=== PATIENT | male | born 1975 | race Caucasian/White ===

== ENCOUNTER 2020-01-27 18:05 | Inpatient (IN) | payer MEDICARE, MEDICAID ==
[~2020-01-27] VITALS: Ht 182.9 cm; Wt 104.3 kg
[2020-01-27] MEDS ORDERED: DIVA-80 PO (20:03)
[2020-01-27] MEDS ORDERED: VENL-68 PO (20:03)
[2020-01-27] MEDS ORDERED: ZIPR80CA9 PO (20:03)
[2020-01-27 20:23] LABS: BASOPHILS % (AUTO) 0.8 % (0.0-2.0); EOSINOPHILS % (AUTO) 0.9 % (1.0-6.0); HEMATOCRIT 41.2 % (41-53); HEMOGLOBIN 13.4 g/dL (13.5-17.5); LYMPHOCYTES # (AUTO) 1.8 K/uL (1.0-4.8); LYMPHOCYTES % (AUTO) 28.4 % (22.0-44.0); MEAN CORPUSCULAR HEMOGLOBIN 30.4 pg (26.0-34.0); MEAN CORPUSCULAR HGB CONC 32.6 G/dL (31.0-37.0); MEAN CORPUSCULAR VOLUME 93 fL (80-100); MONOCYTES # (AUTO) 0.5 K/uL (0.1-1.0); MONOCYTES % (AUTO) 7.9 % (2.0-9.0); NEUTROPHILS # (AUTO) 3.9 K/uL (1.8-7.7); PLATELET COUNT (AUTO) 327 K/uL (150-450); RED BLOOD CELL COUNT(AUTO) 4.41 MIL/uL (4.50-5.90); RED CELL DISTRIBUTION WIDTH 13.6 % (11.5-14.5)
[2020-01-27 20:31] LABS: ANION GAP 7 mmol/L (8-16); CALCIUM, TOTAL 8.5 mg/dL (8.8-10.5); CARBON DIOXIDE 30 mmol/L (22-29); CHLORIDE 104 mmol/L (98-107); CREATININE 0.66 mg/dL (0.60-1.30); GLOMERULAR FILTR. RATE CALC > 60 mL/min (>60); GLUCOSE,RANDOM 100 mg/dL (70-110); POTASSIUM 4.1 mmol/L (3.5-5.1); SODIUM SERUM 141 mmol/L (136-145); UREA NITROGEN, BLOOD 11 mg/dL (7-18)
[2020-01-27 20:36] LABS: ALANINE AMINOTRANSFERASE 19 U/L (12-78); ALBUMIN 3.2 g/dL (3.4-5.0); ALKALINE PHOSPHATASE 60 U/L (46-116); ASPARTATE AMINOTRANSFERASE 18 U/L (15-37); BILIRUBIN,TOTAL 0.2 mg/dL (0.1-1.0)
[2020-01-27 21:23] LABS: AMPHET/METH SCREEN,URINE NEGATIVE (NEGATIVE); BARBITURATE SCREEN, URINE NEGATIVE (NEGATIVE); BENZODIAZEPINES SCREEN,URINE NEGATIVE (NEGATIVE); CANNABINOID SCREEN,URINE NEGATIVE (NEGATIVE); COCAINE SCREEN,URINE NEGATIVE (NEGATIVE); METHADONE SCREEN, URINE NEGATIVE (NEGATIVE); OPIATE SCREEN,URINE NEGATIVE (NEGATIVE)
[2020-01-27 21:25] LABS: PHENCYCLIDINE SCREEN,URINE NEGATIVE (NEGATIVE)
[2020-01-27] MEDS ORDERED: OLANZapine 5 MG RAPDIS TABLET PO PRN (21:30)
[2020-01-27] MEDS ORDERED: ZOLPIDEM TARTRATE 10 MG TABLET PO PRN (21:30)
[2020-01-28 00:14] VITALS: BP 115/68
[2020-01-28 09:24] VITALS: BP 100/60
[2020-01-28] MEDS ORDERED: MAG HYDROX/AL HYDROX/SIMETH ES 30 ML SUSPENSION UDCUP PO PRN (10:00)
[2020-01-28] MEDS ORDERED: ACETAMINOPHEN 325 MG TABLET PO PRN ×2 (10:00→12:30)
[2020-01-28] MEDS ORDERED: PROMETHAZINE HCL 25 MG TABLET PO PRN (10:00)
[2020-01-28] MEDS ORDERED: TUBERCULIN, PURIFIED PROTEIN DERIVATIVE 5 TU/0.1 ML SYRINGE ID ONE (10:00)
[2020-01-28] MEDS ORDERED: GuaiFENesin/D-METHORPHAN [SUGAR-FREE] 200-20MG/10 ML SYRUP UDCUP PO PRN (10:00)
[2020-01-28] MEDS ORDERED: MAGNESIUM HYDROXIDE SUSPENSION 30 ML UDCUP PO PRN (10:00)
[2020-01-28] MEDS ORDERED: HydrOXYzine PAMOATE 50 MG CAPSULE PO PRN (10:00)
[2020-01-28] MEDS ORDERED: LOPERAMIDE HCL 2 MG CAPSULE PO PRN (10:00)
[2020-01-28] MEDS ORDERED: IBUPROFEN 600 MG TABLET PO PRN (12:30)
[2020-01-28] MEDS: THIAMINE 100 MG TABLET PO SCH (16:48)
[2020-01-28] MEDS: ZIPRASIDONE HCL 80 MG CAPSULE PO SCH (16:48)
[2020-01-28] MEDS ORDERED: OLANZapine 5 MG RAPDIS TABLET PO SCH (21:00)
[2020-01-28] MEDS: DIVALPROEX SODIUM 500 MG ER TABLET PO SCH (21:06)
[2020-01-29] MEDS: ZIPRASIDONE HCL 80 MG CAPSULE PO SCH ×2 (07:02→18:35)
[2020-01-29 07:18] LABS: HEMOGLOBIN A1C 5.3 % (3.8-5.6)
[2020-01-29 07:35] LABS: CHOL/HDL RATIO 3.7 (4.2-7.3); FREE T4 (FREE THYROXINE) 1.26 ng/dL (0.76-1.46); THYROID STIMULATING HORMONE 0.77 uIU/mL (0.36-3.74)
[2020-01-29 08:00] VITALS: BP 119/74
[2020-01-29] MEDS ORDERED: FLUoxetine HCL 20 MG CAPSULE PO SCH (09:00)
[2020-01-29] MEDS: THIAMINE 100 MG TABLET PO SCH ×2 (09:10→16:26)
[2020-01-29] MEDS: VENLAFAXINE HCL 150 MG ER CAPSULE PO SCH (09:10)
[2020-01-29] MEDS: FOLIC ACID 1 MG TABLET PO SCH (09:10)
[2020-01-29] MEDS: MULTIVITAMINS WITH MINERALS, THERAPEUTIC TABLET PO SCH (09:10)
[2020-01-29] MEDS: NALTREXONE HCL 50 MG TABLET PO SCH (09:10)
[2020-01-29 11:10] VITALS: BP 119/74
[2020-01-29 16:07] VITALS: BP 102/66
[2020-01-29] MEDS: DIVALPROEX SODIUM 500 MG ER TABLET PO SCH (20:46)
[2020-01-30] MEDS: ZIPRASIDONE HCL 80 MG CAPSULE PO SCH ×2 (06:31→16:41)
[2020-01-30 08:00] VITALS: BP 137/78
[2020-01-30] MEDS: MULTIVITAMINS WITH MINERALS, THERAPEUTIC TABLET PO SCH (08:43)
[2020-01-30] MEDS: THIAMINE 100 MG TABLET PO SCH ×2 (08:44→16:34)
[2020-01-30] MEDS: NALTREXONE HCL 50 MG TABLET PO SCH (08:44)
[2020-01-30] MEDS: FOLIC ACID 1 MG TABLET PO SCH (08:44)
[2020-01-30] MEDS: VENLAFAXINE HCL 150 MG ER CAPSULE PO SCH (08:44)
[2020-01-30 11:55] VITALS: BP 144/81
[2020-01-30] MEDS: LORazepam 2 MG TABLET PO PRN (12:00)
[2020-01-30] MEDS: NICOTINE 14 MG/24 HOUR PATCH TD SCH (15:16)
[2020-01-30 17:00] VITALS: BP 106/71
[2020-01-30] MEDS: DIVALPROEX SODIUM 500 MG ER TABLET PO SCH (20:19)
[2020-01-31] MEDS: ZIPRASIDONE HCL 80 MG CAPSULE PO SCH ×2 (06:50→16:32)
[2020-01-31] MEDS: VENLAFAXINE HCL 150 MG ER CAPSULE PO SCH (08:42)
[2020-01-31] MEDS: MULTIVITAMINS WITH MINERALS, THERAPEUTIC TABLET PO SCH (08:42)
[2020-01-31] MEDS: THIAMINE 100 MG TABLET PO SCH ×2 (08:42→16:32)
[2020-01-31] MEDS: NALTREXONE HCL 50 MG TABLET PO SCH (08:42)
[2020-01-31] MEDS: FOLIC ACID 1 MG TABLET PO SCH (08:42)
[2020-01-31] MEDS: NICOTINE 14 MG/24 HOUR PATCH TD SCH (08:43)
[2020-01-31 08:53] VITALS: BP 149/89
[2020-01-31] MEDS: LORazepam 2 MG TABLET PO PRN (10:04)
[2020-01-31 16:00] VITALS: BP 112/70
[2020-01-31] MEDS: DIVALPROEX SODIUM 500 MG ER TABLET PO SCH (20:04)
[2020-02-01] MEDS: ZIPRASIDONE HCL 80 MG CAPSULE PO SCH ×2 (06:34→16:34)
[2020-02-01] MEDS: MULTIVITAMINS WITH MINERALS, THERAPEUTIC TABLET PO SCH (08:45)
[2020-02-01] MEDS: VENLAFAXINE HCL 150 MG ER CAPSULE PO SCH (08:45)
[2020-02-01] MEDS: NICOTINE 14 MG/24 HOUR PATCH TD SCH (08:45)
[2020-02-01] MEDS: FOLIC ACID 1 MG TABLET PO SCH (08:45)
[2020-02-01] MEDS: THIAMINE 100 MG TABLET PO SCH ×2 (08:45→16:34)
[2020-02-01] MEDS: NALTREXONE HCL 50 MG TABLET PO SCH (08:46)
[2020-02-01 09:15] VITALS: BP 122/91
[2020-02-01] MEDS ORDERED: NITROGLYCERIN 0.4 MG SUBLINGUAL TABLET #25 SL PRN (09:30)
[2020-02-01 10:06] VITALS: BP 115/71
[2020-02-01 10:20] VITALS: BP 109/74
[2020-02-01 12:00] VITALS: BP 147/89
[2020-02-01] MEDS: METOPROLOL TARTRATE 25 MG TABLET PO SCH ×2 (12:50→20:03)
[2020-02-01] MEDS: LORazepam 2 MG TABLET PO PRN ×2 (12:52→16:52)
[2020-02-01 13:14] VITALS: BP 122/84
[2020-02-01 16:03] VITALS: BP 114/67
[2020-02-01] MEDS: DIVALPROEX SODIUM 500 MG ER TABLET PO SCH (20:03)
[2020-02-02] MEDS: ZIPRASIDONE HCL 80 MG CAPSULE PO SCH ×2 (06:47→17:19)
[2020-02-02] MEDS: LORazepam 2 MG TABLET PO PRN ×2 (08:20→14:31)
[2020-02-02] MEDS: MULTIVITAMINS WITH MINERALS, THERAPEUTIC TABLET PO SCH (08:21)
[2020-02-02] MEDS: FOLIC ACID 1 MG TABLET PO SCH (08:21)
[2020-02-02] MEDS: THIAMINE 100 MG TABLET PO SCH ×2 (08:21→17:19)
[2020-02-02] MEDS: VENLAFAXINE HCL 150 MG ER CAPSULE PO SCH (08:23)
[2020-02-02] MEDS: NICOTINE 14 MG/24 HOUR PATCH TD SCH (08:23)
[2020-02-02] MEDS: NALTREXONE HCL 50 MG TABLET PO SCH (08:24)
[2020-02-02] MEDS: METOPROLOL TARTRATE 25 MG TABLET PO SCH ×2 (08:25→20:33)
[2020-02-02 12:00] VITALS: BP 101/67
[2020-02-02 16:00] VITALS: BP 106/71
[2020-02-02] MEDS: DIVALPROEX SODIUM 500 MG ER TABLET PO SCH (20:33)
[2020-02-03] MEDS: ZIPRASIDONE HCL 80 MG CAPSULE PO SCH ×2 (06:19→17:08)
[2020-02-03] MEDS: MULTIVITAMINS WITH MINERALS, THERAPEUTIC TABLET PO SCH (08:08)
[2020-02-03] MEDS: THIAMINE 100 MG TABLET PO SCH ×2 (08:09→17:08)
[2020-02-03] MEDS: METOPROLOL TARTRATE 25 MG TABLET PO SCH ×2 (08:09→20:39)
[2020-02-03] MEDS: VENLAFAXINE HCL 150 MG ER CAPSULE PO SCH (08:09)
[2020-02-03] MEDS: NICOTINE 14 MG/24 HOUR PATCH TD SCH (08:09)
[2020-02-03] MEDS: NALTREXONE HCL 50 MG TABLET PO SCH (08:10)
[2020-02-03] MEDS: FOLIC ACID 1 MG TABLET PO SCH (08:10)
[2020-02-03 09:55] VITALS: BP 107/62
[2020-02-03] MEDS: LORazepam 2 MG TABLET PO PRN ×2 (10:47→15:13)
[2020-02-03 16:00] VITALS: BP 100/65
[2020-02-03] MEDS: DIVALPROEX SODIUM 500 MG ER TABLET PO SCH (20:38)
[2020-02-03] MEDS ORDERED: OLANZapine 5 MG RAPDIS TABLET PO SCH (21:00)
[2020-02-04] MEDS: ZIPRASIDONE HCL 80 MG CAPSULE PO SCH ×2 (06:27→17:36)
[2020-02-04 08:00] VITALS: BP 114/69
[2020-02-04] MEDS: VENLAFAXINE HCL 150 MG ER CAPSULE PO SCH (08:02)
[2020-02-04] MEDS: FOLIC ACID 1 MG TABLET PO SCH (08:02)
[2020-02-04] MEDS: NALTREXONE HCL 50 MG TABLET PO SCH (08:02)
[2020-02-04] MEDS: METOPROLOL TARTRATE 25 MG TABLET PO SCH ×2 (08:02→21:00)
[2020-02-04] MEDS: MULTIVITAMINS WITH MINERALS, THERAPEUTIC TABLET PO SCH (08:02)
[2020-02-04] MEDS: NICOTINE 14 MG/24 HOUR PATCH TD SCH (08:08)
[2020-02-04] MEDS: THIAMINE 100 MG TABLET PO SCH ×2 (08:08→17:36)
[2020-02-04] MEDS: LORazepam 2 MG TABLET PO PRN ×2 (10:55→15:43)
[2020-02-04] MEDS ORDERED: QUEtiapine FUMARATE 100 MG TABLET PO PRN (12:30)
[2020-02-04 19:11] VITALS: BP 142/89
[2020-02-04] MEDS ORDERED: QUEtiapine FUMARATE 100 MG TABLET PO SCH (21:00)
[2020-02-04] MEDS: DIVALPROEX SODIUM 500 MG ER TABLET PO SCH (21:00)
[2020-02-05 04:56] VITALS: BP 125/73
[2020-02-05] MEDS: ZIPRASIDONE HCL 80 MG CAPSULE PO SCH (07:05)
[2020-02-05 08:00] VITALS: BP 102/73
[2020-02-05 08:47] VITALS: BP 110/68
[2020-02-05] MEDS: LORazepam 2 MG TABLET PO PRN (08:48)
[2020-02-05] MEDS: FOLIC ACID 1 MG TABLET PO SCH (08:49)
[2020-02-05] MEDS: NALTREXONE HCL 50 MG TABLET PO SCH (08:49)
[2020-02-05] MEDS: VENLAFAXINE HCL 150 MG ER CAPSULE PO SCH (08:49)
[2020-02-05] MEDS: METOPROLOL TARTRATE 25 MG TABLET PO SCH (08:50)
[2020-02-05] MEDS: MULTIVITAMINS WITH MINERALS, THERAPEUTIC TABLET PO SCH (08:50)
[2020-02-05] MEDS: THIAMINE 100 MG TABLET PO SCH (08:51)
[2020-02-05] MEDS: NICOTINE 14 MG/24 HOUR PATCH TD SCH (08:51)
[2020-02-05] MEDS ORDERED: METO25 PO (14:25)
[2020-02-05] MEDS ORDERED: QUET100T PO (14:26)
[2020-02-05] MEDS ORDERED: NALT50TA6 PO (14:26)
== END 2020-02-05 15:00 | disposition home or self-care (01) | DRG 885 ==
LOC: EMS 18:05 → 3EX 21:26
PROVIDERS: ADMIT Psychiatry & Neurology Psychiatry; ATTEND Psychiatry & Neurology Psychiatry
DX: F25.1 Schizoaffective disorder, depressive type (principal); R45.851 Suicidal ideations; G89.29 Other chronic pain; F14.10 Cocaine abuse, uncomplicated; F17.210 Nicotine dependence, cigarettes, uncomplicated; F12.10 Cannabis abuse, uncomplicated; D64.9 Anemia, unspecified; Z98.1 Arthrodesis status; Z59.0 Homelessness; Z91.14 Patient's other noncompliance with medication regimen
CPT/HCPCS: 83036; 84439; 84443; 86592; 93005; G0378; G0480; 36415-L1; 36415-TC; 71046; 71046-TC; 80061-TC

== ENCOUNTER → 2021-08-05 | Outpatient (CLI) | payer MEDICARE, MEDICAID ==
[~2021-08-05] MED LIST: DIVA-80 PO; METO25 PO; NALT50TA6 PO; VENL-68 PO; ZIPR80CA9 PO
== END | disposition home or self-care (01) ==
LOC: LABMN 13:28
PROVIDERS: ATTEND Psychiatry & Neurology Psychiatry
DX: F25.0 Schizoaffective disorder, bipolar type (principal)
CPT/HCPCS: 80164

== ENCOUNTER → 2021-09-03 | Outpatient (CLI) | payer MEDICARE, MEDICAID ==
[2021-09-03 18:53] LABS: HEMOGLOBIN A1C 5.4 % (3.8-5.6)
[2021-09-03 18:58] LABS: CHOL/HDL RATIO 4.2 (4.2-7.3)
== END | disposition home or self-care (01) ==
LOC: LABPV 14:02
PROVIDERS: ATTEND Psychiatry & Neurology Psychiatry
DX: F25.0 Schizoaffective disorder, bipolar type (principal); Z79.899 Other long term (current) drug therapy
CPT/HCPCS: 80061; 82947; 83036

== ENCOUNTER → 2021-09-24 | Outpatient (CLI) | payer MEDICARE, MEDICAID | END | disposition home or self-care (01) | LOC: LABMN 13:12 | PROVIDERS: ATTEND Psychiatry & Neurology Psychiatry | DX: F25.0 Schizoaffective disorder, bipolar type (principal) | CPT/HCPCS: 80164 ==

== ENCOUNTER 2022-11-22 15:39 | Inpatient (IN) | payer MEDICARE, MEDICAID ==
[~2022-11-22] VITALS: Ht 182.9 cm; Wt 105.7 kg
[~2022-11-22 15:39] MED LIST changes: -DIVA-80 PO; +DIVA500T53 PO
[2022-11-22] MEDS ORDERED: OLANZapine 5 MG RAPDIS TABLET PO PRN (16:45)
[2022-11-22] MEDS ORDERED: ZOLPIDEM TARTRATE 10 MG TABLET PO PRN (16:45)
[2022-11-22] MEDS ORDERED: BISMUTH SUBSALICYLATE 262 MG CHEWABLE TABLET CHEW PRN (19:00)
[2022-11-22] MEDS: LORazepam 2 MG TABLET PO PRN (22:15)
[2022-11-23] MEDS: METOPROLOL TARTRATE 25 MG TABLET PO SCH (08:10)
[2022-11-23] MEDS: NICOTINE 21 MG/24 HOUR PATCH TD SCH (08:10)
[2022-11-23] MEDS: LORazepam 2 MG TABLET PO PRN ×2 (08:16→13:03)
[2022-11-23 08:56] VITALS: BP 117/84
[2022-11-23] MEDS: OMEGA-3/DHA/EPA/FISH OIL 1,000 MG CAPSULE PO SCH (09:00)
[2022-11-23] MEDS: NALTREXONE HCL 50 MG TABLET PO SCH (09:00)
[2022-11-23] MEDS ORDERED: ACETAMINOPHEN 325 MG TABLET PO PRN (11:30)
[2022-11-23] MEDS ORDERED: LOPERAMIDE HCL 2 MG CAPSULE PO PRN ×2 (11:30)
[2022-11-23] MEDS ORDERED: MAG HYDROX/AL HYDROX/SIMETH ES 30 ML SUSPENSION UDCUP PO PRN (11:30)
[2022-11-23] MEDS ORDERED: HydrOXYzine PAMOATE 50 MG CAPSULE PO PRN ×2 (11:30)
[2022-11-23] MEDS ORDERED: GuaiFENesin/D-METHORPHAN [SUGAR-FREE] 200-20MG/10 ML SYRUP UDCUP PO PRN ×2 (11:30)
[2022-11-23] MEDS ORDERED: CYANOCOBALAMIN 1,000 MCG/ML VIAL IM ONE (11:30)
[2022-11-23] MEDS ORDERED: MAGNESIUM HYDROXIDE SUSPENSION 30 ML UDCUP PO PRN (11:30)
[2022-11-23] MEDS ORDERED: PROMETHAZINE HCL 25 MG TABLET PO PRN ×3 (11:30→11:45)
[2022-11-23 16:18] VITALS: BP 115/82
[2022-11-23] MEDS: THIAMINE 100 MG TABLET PO SCH (16:37)
[2022-11-23] MEDS ORDERED: THIAMINE 100 MG TABLET PO SCH (17:00)
[2022-11-23] MEDS: MELATONIN 5 MG TABLET PO SCH (20:46)
[2022-11-23] MEDS: MIRTAZAPINE 15 MG TABLET PO SCH (20:46)
[2022-11-23] MEDS: DiphenhydrAMINE HCL 25 MG CAPSULE PO SCH (20:47)
[2022-11-23] MEDS: OLANZapine 10 MG RAPDIS TABLET PO SCH (20:47)
[2022-11-24] MEDS: MULTIVITAMINS WITH MINERALS, THERAPEUTIC TABLET PO SCH (08:12)
[2022-11-24] MEDS: THIAMINE 100 MG TABLET PO SCH ×2 (08:12→16:28)
[2022-11-24] MEDS: FOLIC ACID 1 MG TABLET PO SCH (08:12)
[2022-11-24] MEDS: NALTREXONE HCL 50 MG TABLET PO SCH (08:12)
[2022-11-24] MEDS: METOPROLOL TARTRATE 25 MG TABLET PO SCH ×2 (08:13→09:50)
[2022-11-24] MEDS: NICOTINE 21 MG/24 HOUR PATCH TD SCH (08:16)
[2022-11-24] MEDS: OMEGA-3/DHA/EPA/FISH OIL 1,000 MG CAPSULE PO SCH (08:17)
[2022-11-24 08:30] VITALS: BP 120/74
[2022-11-24] MEDS ORDERED: MULTIVITAMINS WITH MINERALS, THERAPEUTIC TABLET PO SCH (09:00)
[2022-11-24] MEDS ORDERED: FOLIC ACID 1 MG TABLET PO SCH (09:00)
[2022-11-24] MEDS: LORazepam 2 MG TABLET PO PRN ×2 (09:49→13:55)
[2022-11-24] MEDS: MELATONIN 5 MG TABLET PO SCH (21:00)
[2022-11-24] MEDS: MIRTAZAPINE 15 MG TABLET PO SCH (21:00)
[2022-11-24] MEDS: OLANZapine 10 MG RAPDIS TABLET PO SCH (21:00)
[2022-11-24] MEDS: DiphenhydrAMINE HCL 25 MG CAPSULE PO SCH (21:13)
[2022-11-24] MEDS ORDERED: NALT50TA PO (21:30)
[2022-11-24] MEDS ORDERED: MIRT-89 PO (21:30)
[2022-11-24] MEDS ORDERED: DIPH25CA85 PO (21:30)
[2022-11-24] MEDS ORDERED: OMEG-135 PO (21:30)
[2022-11-24] MEDS ORDERED: OLAN10TA26 PO (21:30)
[2022-11-24] MEDS ORDERED: MELA5TAB40 PO (21:30)
[2022-11-25 06:48] LABS: COVID AG,FIA SOURCE NASAL SWAB
[2022-11-25] MEDS: NICOTINE 21 MG/24 HOUR PATCH TD SCH (08:10)
[2022-11-25] MEDS: MULTIVITAMINS WITH MINERALS, THERAPEUTIC TABLET PO SCH (08:11)
[2022-11-25] MEDS: NALTREXONE HCL 50 MG TABLET PO SCH (08:11)
[2022-11-25] MEDS: OMEGA-3/DHA/EPA/FISH OIL 1,000 MG CAPSULE PO SCH (08:11)
[2022-11-25] MEDS: METOPROLOL TARTRATE 25 MG TABLET PO SCH (08:11)
[2022-11-25] MEDS: THIAMINE 100 MG TABLET PO SCH (08:11)
[2022-11-25] MEDS: FOLIC ACID 1 MG TABLET PO SCH (08:11)
[2022-11-25 08:18] VITALS: BP 120/78
[2022-11-25] MEDS: LORazepam 2 MG TABLET PO PRN ×2 (08:18→13:14)
[2022-11-25 08:27] VITALS: BP 120/78
== END 2022-11-25 15:15 | disposition home or self-care (01) | DRG 885 ==
LOC: 3EC 16:00
PROVIDERS: ADMIT Psychiatry & Neurology Psychiatry; ATTEND Psychiatry & Neurology Psychiatry
PROC: GZHZZZZ Group Psychotherapy (ICD-10-PCS; principal; 2022-11-22)
PROC: GZ51ZZZ Individual Psychotherapy, Behavioral (ICD-10-PCS; 2022-11-22)
DX: F25.9 Schizoaffective disorder, unspecified (principal); J44.9 Chronic obstructive pulmonary disease, unspecified; E66.9 Obesity, unspecified; G89.29 Other chronic pain; I10 Essential (primary) hypertension; D64.9 Anemia, unspecified; E87.6 Hypokalemia; F17.200 Nicotine dependence, unspecified, uncomplicated; Z55.9 Problems related to education and literacy, unspecified; M54.9 Dorsalgia, unspecified; Z59.9 Problem related to housing and economic circumstances, unspecified; Z63.9 Problem related to primary support group, unspecified; Z98.1 Arthrodesis status; Z68.31 Body mass index [BMI] 31.0-31.9, adult
CPT/HCPCS: J3420; Q9967

== ENCOUNTER 2023-10-09 01:56 | Inpatient (IN) | payer MEDICARE, MEDICAID ==
[~2023-10-09] VITALS: Ht 182.9 cm; Wt 104.4 kg
[~2023-10-09 01:56] MED LIST changes: +DIPH25CA85 PO; -DIVA500T53 PO; +MELA5TAB40 PO; -METO25 PO; +MIRT-89 PO; +NALT50TA PO; -NALT50TA6 PO; +OLAN10TA26 PO; +OLAN5TAB94 PO; +OMEG-135 PO; -VENL-68 PO; -ZIPR80CA9 PO
[2023-10-09] MEDS: DiphenhydrAMINE HCL 50 MG/ML VIAL IM ONE (03:43)
[2023-10-09] MEDS: LORazepam 2 MG/ML VIAL IM ONE (03:44)
[2023-10-09] MEDS: HALOPERIDOL LACTATE 5 MG/ML VIAL IM ONE (03:44)
[2023-10-09 04:07] LABS: COVID AG,FIA SOURCE NASAL SWAB
[2023-10-09 04:15] LABS: SARS-COV2 (COVID) ANTIGEN,FIA Negative (Negative)
[2023-10-09 04:32] LABS: BASOPHILS % (AUTO) 0.6 % (0.0-2.0); EOSINOPHILS % (AUTO) 0.6 % (1.0-6.0); HEMATOCRIT 40.9 % (41-53); LYMPHOCYTES # (AUTO) 1.1 K/uL (1.0-4.8); LYMPHOCYTES % (AUTO) 18.6 % (22.0-44.0); MEAN CORPUSCULAR HEMOGLOBIN 31.1 pg (26.0-34.0); MEAN CORPUSCULAR HGB CONC 34.3 G/dL (31.0-37.0); MEAN CORPUSCULAR VOLUME 91 fL (80-100); MONOCYTES # (AUTO) 0.5 K/uL (0.1-1.0); MONOCYTES % (AUTO) 8.3 % (2.0-9.0); NEUTROPHILS # (AUTO) 4.3 K/uL (1.8-7.7); NEUTROPHILS % (AUTO) 71.9 % (40.0-70.0); PLATELET COUNT (AUTO) 254 K/uL (150-450); RED BLOOD CELL COUNT(AUTO) 4.51 MIL/uL (4.50-5.90); RED CELL DISTRIBUTION WIDTH 12.9 % (11.5-14.5); WHITE BLOOD COUNT (AUTO) 5.9 K/uL (4.5-11.0)
[2023-10-09 04:42] LABS: ANION GAP 7 mmol/L (8-16); CALCIUM, TOTAL 8.7 mg/dL (8.8-10.5); CARBON DIOXIDE 30 mmol/L (22-29); CHLORIDE 103 mmol/L (98-107); CREATININE 0.86 mg/dL (0.60-1.30); GLOMERULAR FILTR. RATE CALC > 60 mL/min (>60); GLUCOSE,RANDOM 106 mg/dL (70-110); POTASSIUM 3.7 mmol/L (3.5-5.1); SODIUM SERUM 140 mmol/L (136-145); UREA NITROGEN, BLOOD 9 mg/dL (7-18)
[2023-10-09 04:48] LABS: ALANINE AMINOTRANSFERASE 21 U/L (12-78); ALBUMIN 3.6 g/dL (3.4-5.0); ALKALINE PHOSPHATASE 69 U/L (46-116); ASPARTATE AMINOTRANSFERASE 17 U/L (15-37); BILIRUBIN,TOTAL 0.4 mg/dL (0.1-1.0); TOTAL PROTEIN, SERUM 7.1 g/dL (6.4-8.2)
[2023-10-09 05:07] LABS: ALCOHOL, BLOOD (SERUM) < 3 mg/dL (0-10)
[2023-10-09] MEDS ORDERED: OLANZapine 5 MG RAPDIS TABLET PO PRN (06:00)
[2023-10-09] MEDS ORDERED: ZOLPIDEM TARTRATE 10 MG TABLET PO PRN (06:00)
[2023-10-09] MEDS ORDERED: MAGNESIUM HYDROXIDE SUSPENSION 30 ML UDCUP PO PRN (11:15)
[2023-10-09] MEDS ORDERED: MAG HYDROX/ALUMINUM HYD/SIMETH ES 30 ML SUSPENSION UDCUP PO PRN (11:15)
[2023-10-09] MEDS ORDERED: HydrOXYzine PAMOATE 50 MG CAPSULE PO PRN (11:15)
[2023-10-09] MEDS ORDERED: LOPERAMIDE HCL 2 MG CAPSULE PO PRN (11:15)
[2023-10-09] MEDS ORDERED: GuaiFENesin/D-METHORPHAN [SUGAR-FREE] 200-20MG/10 ML SYRUP UDCUP PO PRN (11:15)
[2023-10-09] MEDS: GABAPENTIN 300 MG CAPSULE PO SCH (17:00)
[2023-10-09] MEDS: THIAMINE 100 MG TABLET PO SCH (17:00)
[2023-10-09 20:56] VITALS: BP 122/85; PULSE 124; TEMP 97.5; O2SAT 97
[2023-10-09] MEDS: OLANZapine 5 MG RAPDIS TABLET PO SCH (21:00)
[2023-10-09] MEDS: MELATONIN 5 MG TABLET PO SCH (21:39)
[2023-10-10 08:00] VITALS: BP 120/78; PULSE 107; RESP 17; TEMP 98.4; O2SAT 99
[2023-10-10 08:40] LABS: CHOL/HDL RATIO 3.7 (4.2-7.3); FREE T4 (FREE THYROXINE) 1.35 ng/dL (0.76-1.46); THYROID STIMULATING HORMONE 0.71 uIU/mL (0.36-3.74)
[2023-10-10 08:44] LABS: HEMOGLOBIN A1C 5.3 % (3.8-5.6)
[2023-10-10] MEDS: DULoxetine HCL 20 MG CAPSULE PO SCH (08:46)
[2023-10-10] MEDS: OMEGA-3/DHA/EPA/FISH OIL 1,000 MG CAPSULE PO SCH (08:46)
[2023-10-10] MEDS: MULTIVITAMINS WITH MINERALS, THERAPEUTIC TABLET PO SCH (08:47)
[2023-10-10] MEDS: FOLIC ACID 1 MG TABLET PO SCH (08:47)
[2023-10-10] MEDS: NALTREXONE HCL 50 MG TABLET PO SCH (08:47)
[2023-10-10] MEDS: PALIPERIDONE PALMITATE 234 MG/1.5 ML SYRINGE IM ONE (09:00)
[2023-10-10 20:04] VITALS: BP 114/77; PULSE 82; RESP 18; TEMP 98; O2SAT 99
[2023-10-11 11:24] VITALS: BP 111/76; PULSE 100; RESP 18; TEMP 98.1; O2SAT 97
[2023-10-11 20:45] VITALS: BP 126/87; RESP 18
[2023-10-11] MEDS: ACETAMINOPHEN 325 MG TABLET PO PRN (20:45)
[2023-10-11] MEDS: PROMETHAZINE HCL 25 MG TABLET PO PRN (20:45)
[2023-10-12 08:12] VITALS: BP 125/74; PULSE 82; RESP 19; TEMP 98.2; O2SAT 97
[2023-10-12] MEDS ORDERED: RisperiDONE 1 MG TABLET PO PRN (16:30)
[2023-10-12 20:17] VITALS: BP 118/75; PULSE 86; TEMP 97.8; O2SAT 96
[2023-10-12] MEDS: RisperiDONE 3 MG TABLET PO SCH (20:22)
[2023-10-13 09:04] VITALS: BP 124/81; PULSE 96; RESP 18; TEMP 97.6; O2SAT 97
[2023-10-13 20:42] VITALS: RESP 19
[2023-10-13] MEDS: RisperiDONE 4 MG TABLET PO SCH (20:45)
[2023-10-13 20:47] VITALS: RESP 17
[2023-10-13 21:47] VITALS: RESP 16
[2023-10-14] MEDS ORDERED: PALIPERIDONE PALMITATE 156 MG/ML SYRINGE IM ONE (09:00)
[2023-10-14 09:30] VITALS: BP 115/76; PULSE 100; RESP 17; TEMP 97.6; O2SAT 97
[2023-10-14] MEDS: DULoxetine HCL 30 MG CAPSULE PO SCH (09:40)
[2023-10-14] MEDS: LORazepam 2 MG TABLET PO PRN (11:35)
[2023-10-14 20:42] VITALS: RESP 18
[2023-10-15 11:45] VITALS: BP 118/72; PULSE 88; RESP 18; TEMP 97.8; O2SAT 96
[2023-10-15 20:36] VITALS: BP 126/80; PULSE 90; RESP 17; TEMP 98.2; O2SAT 96
[2023-10-16 09:16] VITALS: BP 139/98; PULSE 98; RESP 18; TEMP 97.6; O2SAT 97
[2023-10-16 20:05] VITALS: RESP 19
[2023-10-17] MEDS: DULoxetine HCL 20 MG CAPSULE PO SCH (08:29)
[2023-10-17] MEDS: GABAPENTIN 400 MG CAPSULE PO SCH (08:30)
[2023-10-17] MEDS: NICOTINE POLACRILEX 2 MG LOZENGE PO PRN (12:34)
[2023-10-17] MEDS: PALIPERIDONE PALMITATE 234 MG/1.5 ML SYRINGE IM ONE ×2 (15:02→16:49)
[2023-10-17 15:58] VITALS: BP 109/76; PULSE 102; RESP 18; TEMP 97.6; O2SAT 97
[2023-10-17 20:31] VITALS: BP 111/64; PULSE 81; RESP 14; TEMP 97.6; O2SAT 97
[2023-10-17] MEDS: RisperiDONE 2 MG TABLET PO SCH (20:54)
[2023-10-18 11:00] VITALS: BP 103/63; PULSE 83; RESP 18; TEMP 97.3; O2SAT 98
[2023-10-18] MEDS ORDERED: NALT50TA33 PO (16:43)
[2023-10-18] MEDS ORDERED: RISP2TAB45 PO (16:43)
[2023-10-18] MEDS ORDERED: GABA-1201 PO (16:43)
[2023-10-18] MEDS ORDERED: DULO20CA71 PO (16:43)
[2023-10-18 23:35] VITALS: BP 121/72; PULSE 85; RESP 18; TEMP 97.6; O2SAT 98
[2023-10-21] MEDS ORDERED: PALIPERIDONE PALMITATE 156 MG/ML SYRINGE IM ONE (09:00)
== END 2023-10-19 12:20 | disposition home or self-care (01) | DRG 885 ==
LOC: EMS 01:57 → B2X 15:05
PROVIDERS: ADMIT Psychiatry & Neurology Psychiatry; ATTEND Psychiatry & Neurology Psychiatry
PROC: GZHZZZZ Group Psychotherapy (ICD-10-PCS; principal; 2023-10-09)
PROC: GZ51ZZZ Individual Psychotherapy, Behavioral (ICD-10-PCS; 2023-10-09)
DX: F25.0 Schizoaffective disorder, bipolar type (principal); Z91.148 Patient's other noncompliance with medication regimen for other reason; F17.200 Nicotine dependence, unspecified, uncomplicated; I10 Essential (primary) hypertension; M54.9 Dorsalgia, unspecified; Z20.822 Contact with and (suspected) exposure to COVID-19; J44.9 Chronic obstructive pulmonary disease, unspecified; G89.29 Other chronic pain; Z98.1 Arthrodesis status; Z79.899 Other long term (current) drug therapy; Z88.8 Allergy status to other drugs, medicaments and biological substances
CPT/HCPCS: 80053; 80061; 83036; 84439; 84443; 85025; 99285; G0480; J1200; J1630; J2060; Q9967

== ENCOUNTER 2024-01-11 10:23 | Inpatient (IN) | payer MEDICARE, MEDICAID ==
[~2024-01-11] VITALS: Ht 182.9 cm; Wt 106.1 kg
[~2024-01-11 10:23] MED LIST changes: -DIPH25CA85 PO; -MIRT-89 PO; -NALT50TA PO; +NALT50TA33 PO; -OLAN10TA26 PO; -OLAN5TAB94 PO; +RISP2TAB45 PO
[2024-01-11] MEDS ORDERED: BENZ0.5T52 PO (10:30)
[2024-01-11] MEDS ORDERED: PALI39DI IM (10:30)
[2024-01-11] MEDS ORDERED: ARIP2TAB27 PO (10:30)
[2024-01-11 11:32] LABS: BASOPHILS % (AUTO) 0.3 % (0.0-2.0); EOSINOPHILS % (AUTO) 0.3 % (1.0-6.0); HEMATOCRIT 43.7 % (41-53); HEMOGLOBIN 14.9 g/dL (13.5-17.5); LYMPHOCYTES # (AUTO) 1.5 K/uL (1.0-4.8); MEAN CORPUSCULAR HEMOGLOBIN 30.4 pg (26.0-34.0); MEAN CORPUSCULAR HGB CONC 34.1 G/dL (31.0-37.0); MEAN CORPUSCULAR VOLUME 89 fL (80-100); MONOCYTES # (AUTO) 0.8 K/uL (0.1-1.0); MONOCYTES % (AUTO) 9.1 % (2.0-9.0); NEUTROPHILS # (AUTO) 6.2 K/uL (1.8-7.7); NEUTROPHILS % (AUTO) 72.3 % (40.0-70.0); PLATELET COUNT (AUTO) 267 K/uL (150-450); RED CELL DISTRIBUTION WIDTH 13.8 % (11.5-14.5); WHITE BLOOD COUNT (AUTO) 8.5 K/uL (4.5-11.0)
[2024-01-11 11:41] LABS: ANION GAP 11 mmol/L (8-16); CARBON DIOXIDE 26 mmol/L (22-29); CHLORIDE 102 mmol/L (98-107); GLOMERULAR FILTR. RATE CALC > 60 mL/min (>60); GLUCOSE,RANDOM 89 mg/dL (70-110); POTASSIUM 3.8 mmol/L (3.5-5.1); SODIUM SERUM 139 mmol/L (136-145); UREA NITROGEN, BLOOD 16 mg/dL (7-18)
[2024-01-11 11:45] LABS: ALCOHOL, BLOOD (SERUM) < 3 mg/dL (0-10)
[2024-01-11 11:46] LABS: ALANINE AMINOTRANSFERASE 27 U/L (12-78); ALBUMIN 3.8 g/dL (3.4-5.0); ALKALINE PHOSPHATASE 67 U/L (46-116); ASPARTATE AMINOTRANSFERASE 24 U/L (15-37); BILIRUBIN,TOTAL 0.7 mg/dL (0.1-1.0); TOTAL PROTEIN, SERUM 7.3 g/dL (6.4-8.2)
[2024-01-11] MEDS ORDERED: PROMETHAZINE HCL 25 MG TABLET PO PRN (12:00)
[2024-01-11] MEDS ORDERED: GuaiFENesin/D-METHORPHAN [SUGAR-FREE] 200-20MG/10 ML SYRUP UDCUP PO PRN (12:00)
[2024-01-11] MEDS ORDERED: HydrOXYzine PAMOATE 50 MG CAPSULE PO PRN (12:00)
[2024-01-11] MEDS ORDERED: MAG HYDROX/ALUMINUM HYD/SIMETH ES 30 ML SUSPENSION UDCUP PO PRN (12:00)
[2024-01-11] MEDS ORDERED: ACETAMINOPHEN 325 MG TABLET PO PRN (12:00)
[2024-01-11] MEDS ORDERED: ZOLPIDEM TARTRATE 10 MG TABLET PO PRN (12:00)
[2024-01-11] MEDS ORDERED: LOPERAMIDE HCL 2 MG CAPSULE PO PRN (12:00)
[2024-01-11] MEDS ORDERED: PALIPERIDONE PALMITATE 234 MG/1.5 ML SYRINGE IM ONE (12:00)
[2024-01-11] MEDS ORDERED: MAGNESIUM HYDROXIDE SUSPENSION 30 ML UDCUP PO PRN (12:00)
[2024-01-11 13:40] LABS: COVID AG,FIA SOURCE NASAL SWAB
[2024-01-11 13:54] LABS: ALCOHOL, URINE DRUG SCREEN NEGATIVE (NEGATIVE); AMPHET/METH SCREEN,URINE POSITIVE (NEGATIVE); BARBITURATE SCREEN, URINE NEGATIVE (NEGATIVE); BENZODIAZEPINES SCREEN,URINE NEGATIVE (NEGATIVE); CANNABINOID SCREEN,URINE POSITIVE (NEGATIVE); COCAINE SCREEN,URINE NEGATIVE (NEGATIVE); METHADONE SCREEN, URINE NEGATIVE (NEGATIVE); OPIATE SCREEN,URINE NEGATIVE (NEGATIVE); PHENCYCLIDINE SCREEN,URINE NEGATIVE (NEGATIVE)
[2024-01-11 14:03] LABS: SARS-COV2 (COVID) ANTIGEN,FIA Negative (Negative)
[2024-01-11 16:31] VITALS: BP 149/86; PULSE 120; RESP 19; TEMP 97.4; O2SAT 95
[2024-01-11] MEDS: MELATONIN 5 MG TABLET PO SCH (22:54)
[2024-01-11] MEDS: THIAMINE 100 MG TABLET PO SCH (22:54)
[2024-01-11] MEDS: OLANZapine 5 MG RAPDIS TABLET PO SCH (22:55)
[2024-01-11 23:31] VITALS: BP 140/80; PULSE 100; RESP 18; TEMP 97.4
[2024-01-12 08:29] VITALS: BP 111/66; PULSE 84; RESP 16; TEMP 98.2; O2SAT 97
[2024-01-12] MEDS: NALTREXONE HCL 50 MG TABLET PO SCH (08:43)
[2024-01-12] MEDS: MULTIVITAMINS WITH MINERALS, THERAPEUTIC TABLET PO SCH (08:43)
[2024-01-12] MEDS: FOLIC ACID 1 MG TABLET PO SCH (08:43)
[2024-01-12] MEDS: PNEUMOCOCCAL VACCINE POLYVALENT 0.5 ML SYRINGE [PPSV23] IM. ONE (08:50)
[2024-01-12] MEDS: NICOTINE 21 MG/24 HOUR PATCH TD SCH (12:35)
[2024-01-12 20:25] VITALS: BP 134/68; PULSE 75; RESP 16; TEMP 98.4; O2SAT 97
[2024-01-12] MEDS: OLANZapine 10 MG RAPDIS TABLET PO SCH (20:43)
[2024-01-13 08:12] VITALS: BP 127/73; PULSE 73; RESP 16; TEMP 98.2; O2SAT 95
[2024-01-13] MEDS: PALIPERIDONE PALMITATE 234 MG/1.5 ML SYRINGE IM ONE (14:45)
[2024-01-13 20:50] VITALS: BP 118/99; PULSE 97; RESP 18; TEMP 97.5; O2SAT 97
[2024-01-13] MEDS: RisperiDONE 2 MG TABLET PO SCH (21:05)
[2024-01-14] MEDS: LORazepam 2 MG TABLET PO PRN (11:43)
[2024-01-14] MEDS: OLANZapine 5 MG RAPDIS TABLET PO PRN (12:20)
[2024-01-14 12:56] VITALS: BP 100/61; PULSE 100; RESP 18; TEMP 97.8; O2SAT 98
[2024-01-14 20:43] VITALS: RESP 18
[2024-01-15] MEDS ORDERED: PALIPERIDONE PALMITATE 156 MG/ML SYRINGE IM ONE (09:00)
[2024-01-15 09:11] VITALS: BP 129/74; PULSE 95; RESP 18; TEMP 98.3; O2SAT 95
[2024-01-15] MEDS: RisperiDONE 3 MG TABLET PO SCH (20:41)
[2024-01-15 20:42] VITALS: BP 112/59; PULSE 90; RESP 16; TEMP 97.7; O2SAT 95
[2024-01-16 08:16] VITALS: BP 113/78; PULSE 98; RESP 18; TEMP 97.9; O2SAT 96
[2024-01-16] MEDS: BuPROPion HCL XL 150 MG ER TABLET PO SCH (08:58)
[2024-01-16] MEDS ORDERED: BISMUTH SUBSALICYLATE 262 MG CHEWABLE TABLET CHEW PRN (09:15)
[2024-01-16] MEDS: PALIPERIDONE PALMITATE 156 MG/ML SYRINGE IM ONE (14:05)
[2024-01-16] MEDS: RisperiDONE 4 MG TABLET PO SCH (20:36)
[2024-01-16 22:33] VITALS: BP 127/72; PULSE 104; RESP 16; TEMP 98.1; O2SAT 95
[2024-01-17] MEDS: MODAFINIL 100 MG TABLET PO SCH (08:26)
[2024-01-17 08:36] VITALS: BP 137/77; PULSE 90; RESP 18; TEMP 97.8; O2SAT 98
[2024-01-17] MEDS ORDERED: MODA100T65 PO (13:09)
[2024-01-17] MEDS ORDERED: RISP4TAB94 PO (13:09)
[2024-01-17] MEDS ORDERED: BUPR-514 PO (13:09)
[2024-01-17] MEDS ORDERED: RisperiDONE 3 MG TABLET PO SCH (21:00)
[2024-01-18] MEDS ORDERED: MODAFINIL 100 MG TABLET PO SCH (09:00)
== END 2024-01-17 16:10 | disposition home or self-care (01) | DRG 885 ==
LOC: EMS 10:23 → B2X 14:15 → EMS 15:07
PROVIDERS: ADMIT Psychiatry & Neurology Psychiatry; ATTEND Psychiatry & Neurology Psychiatry
PROC: GZHZZZZ Group Psychotherapy (ICD-10-PCS; principal; 2024-01-11)
PROC: GZ56ZZZ Individual Psychotherapy, Supportive (ICD-10-PCS; 2024-01-11)
DX: F25.1 Schizoaffective disorder, depressive type (principal); F15.20 Other stimulant dependence, uncomplicated; Z59.00 Homelessness unspecified; D64.9 Anemia, unspecified; I10 Essential (primary) hypertension; G89.29 Other chronic pain; F17.200 Nicotine dependence, unspecified, uncomplicated; Z20.822 Contact with and (suspected) exposure to COVID-19; K29.70 Gastritis, unspecified, without bleeding; M54.9 Dorsalgia, unspecified; F12.20 Cannabis dependence, uncomplicated; F10.20 Alcohol dependence, uncomplicated; J44.9 Chronic obstructive pulmonary disease, unspecified; E66.9 Obesity, unspecified; F90.9 Attention-deficit hyperactivity disorder, unspecified type; Z88.1 Allergy status to other antibiotic agents; Z88.8 Allergy status to other drugs, medicaments and biological substances; Z68.31 Body mass index [BMI] 31.0-31.9, adult; Z98.1 Arthrodesis status; Z91.148 Patient's other noncompliance with medication regimen for other reason
CPT/HCPCS: 80053; 80307; 85025; 99285; G0480; Q9967

== ENCOUNTER 2024-05-29 10:53 | Inpatient (IN) | payer MEDICARE, MEDICAID ==
[~2024-05-29] VITALS: Ht 177.8 cm; Wt 95.5 kg
[~2024-05-29 10:53] MED LIST changes: +ARIP2TAB27 PO; +BENZ0.5T52 PO; +BUPR-514 PO; -OMEG-135 PO; +PALI39DI IM; +RISP4TAB94 PO
[2024-05-29 11:36] LABS: COVID AG,FIA SOURCE NASAL SWAB
[2024-05-29 11:39] LABS: BASOPHILS % (AUTO) 0.7 % (0.0-2.0); EOSINOPHILS % (AUTO) 0.5 % (1.0-6.0); HEMATOCRIT 38.3 % (41-53); HEMOGLOBIN 12.8 g/dL (13.5-17.5); LYMPHOCYTES # (AUTO) 1.4 K/uL (1.0-4.8); MEAN CORPUSCULAR HEMOGLOBIN 30.4 pg (26.0-34.0); MEAN CORPUSCULAR HGB CONC 33.5 G/dL (31.0-37.0); MEAN CORPUSCULAR VOLUME 91 fL (80-100); MONOCYTES # (AUTO) 0.4 K/uL (0.1-1.0); MONOCYTES % (AUTO) 8.1 % (2.0-9.0); NEUTROPHILS # (AUTO) 3.6 K/uL (1.8-7.7); NEUTROPHILS % (AUTO) 65.7 % (40.0-70.0); PLATELET COUNT (AUTO) 252 K/uL (150-450); RED BLOOD CELL COUNT(AUTO) 4.22 MIL/uL (4.50-5.90); RED CELL DISTRIBUTION WIDTH 13.6 % (11.5-14.5); WHITE BLOOD COUNT (AUTO) 5.4 K/uL (4.5-11.0)
[2024-05-29] MEDS ORDERED: HALOPERIDOL 5 MG TABLET PO PRN (11:45)
[2024-05-29 12:06] LABS: ANION GAP 9 mmol/L (8-16); CALCIUM, TOTAL 8.7 mg/dL (8.8-10.5); CARBON DIOXIDE 29 mmol/L (22-29); CHLORIDE 102 mmol/L (98-107); CREATININE 0.98 mg/dL (0.60-1.30); GLOMERULAR FILTR. RATE CALC > 60 mL/min (>60); GLUCOSE,RANDOM 93 mg/dL (70-110); POTASSIUM 3.8 mmol/L (3.5-5.1); SODIUM SERUM 139 mmol/L (136-145); UREA NITROGEN, BLOOD 10 mg/dL (7-18)
[2024-05-29 12:09] LABS: ALCOHOL, BLOOD (SERUM) < 3 mg/dL (0-10)
[2024-05-29 13:15] LABS: SARS-COV2 (COVID) ANTIGEN,FIA Negative (Negative)
[2024-05-29 13:32] LABS: APPEARANCE,URINE CLEAR (CLEAR); BILIRUBIN,URINE NEGATIVE (NEGATIVE); COLOR,URINE LIGHT YELLOW (YELLOW); GLUCOSE, URINE (UA) NEGATIVE (NEGATIVE); KETONES,URINE NEGATIVE (NEGATIVE); LEUKOCYTE ESTERASE ,URINE NEGATIVE (NEGATIVE); NITRATE,URINE NEGATIVE (NEGATIVE); OCCULT BLOOD,URINE NEGATIVE (NEGATIVE); PH,URINE 6.5 (5.0-8.0); PROTEIN,URINE NEGATIVE (NEGATIVE); SPECIFIC GRAVITIY, URINE 1.007 (1.003-1.030); UROBILINOGEN,URINE <=1.0 mg/dL (<=1.0)
[2024-05-29 13:34] LABS: PH,URINE DRUG SCREEN 6.5 (5.0-8.0)
[2024-05-29 13:40] LABS: AMPHET/METH SCREEN,URINE NEGATIVE (NEGATIVE); BARBITURATE SCREEN, URINE NEGATIVE (NEGATIVE); BENZODIAZEPINES SCREEN,URINE NEGATIVE (NEGATIVE); CANNABINOID SCREEN,URINE POSITIVE (NEGATIVE); COCAINE SCREEN,URINE NEGATIVE (NEGATIVE); METHADONE SCREEN, URINE NEGATIVE (NEGATIVE); OPIATE SCREEN,URINE NEGATIVE (NEGATIVE); PHENCYCLIDINE SCREEN,URINE NEGATIVE (NEGATIVE)
[2024-05-29 13:43] LABS: ALCOHOL, URINE DRUG SCREEN NEGATIVE (NEGATIVE)
[2024-05-29 13:44] VITALS: O2SAT 96
[2024-05-29 15:07] VITALS: BP 128/90; PULSE 109; RESP 18; TEMP 97.1; O2SAT 94
[2024-05-29 21:17] VITALS: RESP 18
[2024-05-30] MEDS ORDERED: ALBUTEROL SULFATE HFA 90 MCG/PUFF 8 GM INHALER IH PRN (08:30)
[2024-05-30] MEDS ORDERED: LOPERAMIDE HCL 2 MG CAPSULE PO PRN (08:30)
[2024-05-30] MEDS ORDERED: CloNIDine HCL 0.1 MG TABLET PO PRN (08:30)
[2024-05-30] MEDS ORDERED: BENZOCAINE/MENTHOL LOZENGE PO PRN (08:30)
[2024-05-30] MEDS ORDERED: DOCUSATE SODIUM 100 MG CAPSULE PO PRN (08:30)
[2024-05-30] MEDS ORDERED: IBUPROFEN 600 MG TABLET PO PRN (08:30)
[2024-05-30] MEDS ORDERED: OMEPRAZOLE 20 MG CAPSULE PO PRN (08:30)
[2024-05-30] MEDS ORDERED: PETROLATUM,WHITE 28 GM JELLY TP PRN (08:30)
[2024-05-30] MEDS ORDERED: MAGNESIUM HYDROXIDE SUSPENSION 30 ML UDCUP PO PRN (08:30)
[2024-05-30] MEDS ORDERED: BACITRACIN 28 GM OINTMENT TP PRN (08:30)
[2024-05-30] MEDS ORDERED: ACETAMINOPHEN 325 MG TABLET PO PRN (08:30)
[2024-05-30] MEDS ORDERED: ONDANSETRON 4 MG TABLET PO PRN (08:30)
[2024-05-30 08:49] VITALS: RESP 17
[2024-05-30 09:04] LABS: CHOL/HDL RATIO 3.5 (4.2-7.3)
[2024-05-30 09:05] LABS: HEMOGLOBIN A1C 5.2 % (3.8-5.6)
[2024-05-30 20:00] VITALS: BP 111/75; PULSE 82; RESP 17; TEMP 97.2; O2SAT 96
[2024-05-30] MEDS: BENZTROPINE MESYLATE 1 MG TABLET PO SCH (20:40)
[2024-05-30] MEDS: MAG HYDROX/ALUMINUM HYD/SIMETH ES 30 ML SUSPENSION UDCUP PO PRN (21:03)
[2024-05-31 08:33] VITALS: BP 112/78; PULSE 92; RESP 18; TEMP 97.9; O2SAT 97
[2024-05-31] MEDS: BuPROPion HCL XL 150 MG ER TABLET PO SCH (08:55)
[2024-05-31] MEDS: RisperiDONE 2 MG TABLET PO SCH (08:55)
[2024-05-31] MEDS: LORazepam 2 MG TABLET PO PRN (11:00)
[2024-05-31] MEDS: NICOTINE 14 MG/24 HOUR PATCH TD PRN (11:01)
[2024-05-31 20:54] VITALS: BP 110/68; PULSE 91; RESP 18; TEMP 97.6; O2SAT 99
[2024-05-31] MEDS: ZOLPIDEM TARTRATE 10 MG TABLET PO PRN (21:10)
[2024-06-01 12:40] VITALS: BP 117/77; PULSE 91; RESP 18; TEMP 96.7; O2SAT 96
[2024-06-01] MEDS: INFLUENZA VIRUS VACCINE TVS (6MO+) 2024-25/PF 45 MCG/0.5 ML SYRINGE IM. ONE (16:56)
[2024-06-01 20:11] VITALS: BP 121/84; PULSE 102; RESP 18; TEMP 98; O2SAT 97
[2024-06-02 08:21] VITALS: BP 128/73; PULSE 94; RESP 16; TEMP 97.6; O2SAT 96
[2024-06-02 20:23] VITALS: BP 102/68; PULSE 91; RESP 18; TEMP 98.6; O2SAT 97
[2024-06-03 08:22] VITALS: BP 108/78; PULSE 103; RESP 18; TEMP 98.4; O2SAT 97
[2024-06-03] MEDS ORDERED: BENZ-247 PO (12:45)
[2024-06-03] MEDS ORDERED: RISP-32 PO (12:45)
== END 2024-06-03 17:13 | disposition home or self-care (01) | DRG 885 ==
LOC: EMS 10:53 → B2X 13:36
PROVIDERS: ADMIT Psychiatry & Neurology Psychiatry; ATTEND Psychiatry & Neurology Psychiatry
DX: F25.1 Schizoaffective disorder, depressive type (principal); R45.851 Suicidal ideations; F41.9 Anxiety disorder, unspecified; G47.00 Insomnia, unspecified; K59.00 Constipation, unspecified; F15.10 Other stimulant abuse, uncomplicated; D64.9 Anemia, unspecified; J44.9 Chronic obstructive pulmonary disease, unspecified; Z20.822 Contact with and (suspected) exposure to COVID-19; F17.210 Nicotine dependence, cigarettes, uncomplicated; F14.90 Cocaine use, unspecified, uncomplicated; Y90.0 Blood alcohol level of less than 20 mg/100 ml; Z98.1 Arthrodesis status; Z79.899 Other long term (current) drug therapy; F10.10 Alcohol abuse, uncomplicated
CPT/HCPCS: 80048; 80061; 80307; 81003; 83036; 85025; 90686; 99285; G0480

== ENCOUNTER 2024-07-04 18:03 | Inpatient (IN) | payer MEDICARE, MEDICAID ==
[~2024-07-04] VITALS: Ht 182.9 cm; Wt 101.3 kg
[~2024-07-04 18:03] MED LIST changes: -ARIP2TAB27 PO; +BENZ-247 PO; -BENZ0.5T52 PO; -MELA5TAB40 PO; -NALT50TA33 PO; -PALI39DI IM; +RISP-32 PO; -RISP2TAB45 PO; -RISP4TAB94 PO
[2024-07-04 19:56] LABS: BASOPHILS % (AUTO) 0.9 % (0.0-2.0); HEMOGLOBIN 12.8 g/dL (13.5-17.5); LYMPHOCYTES # (AUTO) 1.7 K/uL (1.0-4.8); LYMPHOCYTES % (AUTO) 25.2 % (22.0-44.0); MEAN CORPUSCULAR HGB CONC 33.7 G/dL (31.0-37.0); MEAN CORPUSCULAR VOLUME 92 fL (80-100); MONOCYTES # (AUTO) 0.6 K/uL (0.1-1.0); MONOCYTES % (AUTO) 8.6 % (2.0-9.0); NEUTROPHILS # (AUTO) 4.3 K/uL (1.8-7.7); NEUTROPHILS % (AUTO) 64.3 % (40.0-70.0); PLATELET COUNT (AUTO) 285 K/uL (150-450); RED BLOOD CELL COUNT(AUTO) 4.12 MIL/uL (4.50-5.90); RED CELL DISTRIBUTION WIDTH 13.6 % (11.5-14.5); WHITE BLOOD COUNT (AUTO) 6.6 K/uL (4.5-11.0)
[2024-07-04 20:04] LABS: ANION GAP 5 mmol/L (8-16); CALCIUM, TOTAL 8.6 mg/dL (8.8-10.5); CARBON DIOXIDE 31 mmol/L (22-29); CHLORIDE 105 mmol/L (98-107); CREATININE 0.96 mg/dL (0.60-1.30); GLOMERULAR FILTR. RATE CALC > 60 mL/min (>60); GLUCOSE,RANDOM 98 mg/dL (70-110); POTASSIUM 4.3 mmol/L (3.5-5.1); SODIUM SERUM 141 mmol/L (136-145); UREA NITROGEN, BLOOD 12 mg/dL (7-18)
[2024-07-04 20:06] LABS: ALCOHOL, BLOOD (SERUM) < 3 mg/dL (0-10)
[2024-07-04 21:17] LABS: COVID AG,FIA SOURCE NASAL SWAB
[2024-07-04 21:34] LABS: ALCOHOL, URINE DRUG SCREEN NEGATIVE (NEGATIVE); AMPHET/METH SCREEN,URINE POSITIVE (NEGATIVE); BARBITURATE SCREEN, URINE NEGATIVE (NEGATIVE); BENZODIAZEPINES SCREEN,URINE NEGATIVE (NEGATIVE); CANNABINOID SCREEN,URINE POSITIVE (NEGATIVE); COCAINE SCREEN,URINE NEGATIVE (NEGATIVE); METHADONE SCREEN, URINE NEGATIVE (NEGATIVE); OPIATE SCREEN,URINE NEGATIVE (NEGATIVE); PHENCYCLIDINE SCREEN,URINE NEGATIVE (NEGATIVE)
[2024-07-04 21:39] LABS: SARS-COV2 (COVID) ANTIGEN,FIA Negative (Negative)
[2024-07-04] MEDS: LORazepam 1 MG TABLET PO ONE (23:50)
[2024-07-04] MEDS: RisperiDONE 1 MG TABLET PO ONE (23:50)
[2024-07-05] MEDS ORDERED: HALOPERIDOL 5 MG TABLET PO PRN (02:45)
[2024-07-05 03:40] VITALS: O2SAT 100
[2024-07-05 04:35] VITALS: BP 107/70; PULSE 88; RESP 18; TEMP 96.9; O2SAT 97
[2024-07-05] MEDS ORDERED: DOCUSATE SODIUM 100 MG CAPSULE PO PRN (11:00)
[2024-07-05] MEDS ORDERED: GuaiFENesin/D-METHORPHAN [SUGAR-FREE] 200-20MG/10 ML SYRUP UDCUP PO PRN (11:00)
[2024-07-05] MEDS ORDERED: LOPERAMIDE HCL 2 MG CAPSULE PO PRN (11:00)
[2024-07-05] MEDS ORDERED: ACETAMINOPHEN 325 MG TABLET PO PRN (11:00)
[2024-07-05] MEDS ORDERED: PETROLATUM,WHITE 28 GM JELLY TP PRN (11:00)
[2024-07-05] MEDS ORDERED: MAGNESIUM HYDROXIDE SUSPENSION 30 ML UDCUP PO PRN (11:00)
[2024-07-05] MEDS ORDERED: ALBUTEROL SULFATE HFA 90 MCG/PUFF 8 GM INHALER IH PRN (11:00)
[2024-07-05] MEDS ORDERED: CloNIDine HCL 0.1 MG TABLET PO PRN (11:00)
[2024-07-05] MEDS: BuPROPion HCL XL 150 MG ER TABLET PO SCH (14:50)
[2024-07-05] MEDS: RisperiDONE 2 MG TABLET PO SCH (16:06)
[2024-07-05 20:31] VITALS: BP 111/73; PULSE 79; RESP 18; TEMP 97.5; O2SAT 98
[2024-07-05] MEDS: LORazepam 2 MG TABLET PO PRN (20:53)
[2024-07-05] MEDS: BENZTROPINE MESYLATE 1 MG TABLET PO SCH (20:53)
[2024-07-06 08:33] LABS: HEMOGLOBIN A1C 5.1 % (3.8-5.6)
[2024-07-06 09:00] LABS: CHOL/HDL RATIO 3.7 (4.2-7.3); THYROID STIMULATING HORMONE 0.69 uIU/mL (0.36-3.74)
[2024-07-06 09:23] VITALS: BP 121/83; PULSE 82; RESP 18; TEMP 97.7; O2SAT 98
[2024-07-06] MEDS: NICOTINE 14 MG/24 HOUR PATCH TD PRN (12:00)
[2024-07-06 21:13] VITALS: BP 103/69; PULSE 94; RESP 17; TEMP 97.3; O2SAT 99
[2024-07-07 08:47] LABS: APPEARANCE,URINE CLEAR (CLEAR); BILIRUBIN,URINE NEGATIVE (NEGATIVE); COLOR,URINE LIGHT YELLOW (YELLOW); GLUCOSE, URINE (UA) NEGATIVE (NEGATIVE); KETONES,URINE NEGATIVE (NEGATIVE); LEUKOCYTE ESTERASE ,URINE NEGATIVE (NEGATIVE); NITRATE,URINE NEGATIVE (NEGATIVE); OCCULT BLOOD,URINE NEGATIVE (NEGATIVE); PROTEIN,URINE NEGATIVE (NEGATIVE); SPECIFIC GRAVITIY, URINE 1.009 (1.003-1.030); UROBILINOGEN,URINE <=1.0 mg/dL (<=1.0)
[2024-07-07 08:54] VITALS: BP 110/69; PULSE 100; RESP 17; TEMP 97.4; O2SAT 99
[2024-07-07 08:54] LABS: ALCOHOL, URINE DRUG SCREEN NEGATIVE (NEGATIVE); AMPHET/METH SCREEN,URINE POSITIVE (NEGATIVE); BARBITURATE SCREEN, URINE NEGATIVE (NEGATIVE); BENZODIAZEPINES SCREEN,URINE NEGATIVE (NEGATIVE); CANNABINOID SCREEN,URINE POSITIVE (NEGATIVE); COCAINE SCREEN,URINE NEGATIVE (NEGATIVE); METHADONE SCREEN, URINE NEGATIVE (NEGATIVE); OPIATE SCREEN,URINE NEGATIVE (NEGATIVE); PHENCYCLIDINE SCREEN,URINE NEGATIVE (NEGATIVE)
[2024-07-07] MEDS: MAG HYDROX/ALUMINUM HYD/SIMETH ES 30 ML SUSPENSION UDCUP PO PRN (12:56)
[2024-07-07 20:37] VITALS: BP 105/69; PULSE 96; RESP 18; TEMP 97.4; O2SAT 98
[2024-07-08 08:27] VITALS: BP 143/71; PULSE 96; RESP 17; TEMP 98.2; O2SAT 100
[2024-07-08] MEDS: ONDANSETRON 4 MG TABLET PO PRN (20:13)
[2024-07-08] MEDS: ZOLPIDEM TARTRATE 10 MG TABLET PO PRN (20:42)
[2024-07-08] MEDS: GABAPENTIN 300 MG CAPSULE PO SCH (20:48)
[2024-07-09 08:45] VITALS: BP 133/79; PULSE 86; RESP 17; TEMP 98.4; O2SAT 100
[2024-07-09] MEDS: PALIPERIDONE PALMITATE 234 MG/1.5 ML SYRINGE IM ONE ×2 (09:00→14:36)
[2024-07-10 08:13] VITALS: BP 117/82; PULSE 100; RESP 17; TEMP 97.5; O2SAT 99
[2024-07-10 20:31] VITALS: BP 116/71; PULSE 100; RESP 17; TEMP 98; O2SAT 96
[2024-07-11 08:16] VITALS: BP 107/68; PULSE 81; RESP 18; TEMP 98.1; O2SAT 98
[2024-07-11] MEDS ORDERED: GABA-1181 PO (15:30)
[2024-07-11] MEDS ORDERED: BENZ-247 PO (15:30)
[2024-07-11] MEDS ORDERED: RISP-32 PO (15:30)
[2024-07-11] MEDS ORDERED: NALT50TA6 PO (15:30)
[2024-07-11 20:30] VITALS: BP 152/69; PULSE 98; RESP 18; TEMP 97.5
[2024-07-12] MEDS: IBUPROFEN 400 MG TABLET PO PRN (06:39)
[2024-07-12 06:43] VITALS: BP 121/78; PULSE 107; RESP 18; TEMP 97.2
[2024-07-12 07:40] VITALS: BP 124/76; PULSE 118; RESP 17; TEMP 97; O2SAT 96
[2024-07-12 09:03] VITALS: BP 124/76; PULSE 98; RESP 18; TEMP 97; O2SAT 96
[2024-07-13] MEDS ORDERED: PALIPERIDONE PALMITATE 156 MG/ML SYRINGE IM ONE (09:00)
[2024-08-06] MEDS ORDERED: PALIPERIDONE PALMITATE 234 MG/1.5 ML SYRINGE IM SCH (09:00)
== END 2024-07-12 11:14 | DRG 885 ==
LOC: EMS 18:03 → B2X 07-05 04:08 → EMS 07-05 04:38
PROVIDERS: ADMIT Psychiatry & Neurology Child & Adolescent Psychiatry; ATTEND Psychiatry & Neurology Psychiatry
PROC: GZ56ZZZ Individual Psychotherapy, Supportive (ICD-10-PCS; principal; 2024-07-05)
PROC: GZHZZZZ Group Psychotherapy (ICD-10-PCS; 2024-07-05)
DX: F25.1 Schizoaffective disorder, depressive type (principal); R45.851 Suicidal ideations; F15.20 Other stimulant dependence, uncomplicated; F41.9 Anxiety disorder, unspecified; G47.00 Insomnia, unspecified; Z20.822 Contact with and (suspected) exposure to COVID-19; G89.29 Other chronic pain; M54.9 Dorsalgia, unspecified; D64.9 Anemia, unspecified; I10 Essential (primary) hypertension; Z87.891 Personal history of nicotine dependence; Z98.1 Arthrodesis status; F12.20 Cannabis dependence, uncomplicated
CPT/HCPCS: 80048; 80061; 80307; 81003; 83036; 84443; 85025; 99285; G0480; Q0162